=== PATIENT | male | born 1985 | race Caucasian/White ===

== ENCOUNTER 2019-11-26 14:22 | Outpatient (CLI) | payer OTHER, SELFPAY ==
[2019-11-26 14:39] LABS: Hematocrit 44.1 % (40.0-54.0); Hemoglobin 15.5 g/dL (14.0-18.0); Mean Corpuscular HGB Conc 35.1 g/dL (32.0-36.0); Mean Corpuscular Hemoglobin 33.5 pg (27.0-31.0); Mean Corpuscular Volume 95.5 fL (78.0-102.0); Mean Platelet Volume 8.7 fl (8.7-11.0); Platelet Count Result 261 K/mm3 (150-420); Red Blood Count 4.62 M/mm3 (4.70-6.10); Red Cell Distribution Width 13.6 % (11.6-14.4)
[2019-11-26 15:19] LABS: Alanine Aminotransferase 26 U/L (16-63); Albumin Level 3.5 g/dL (3.4-5.0); Alkaline Phosphatase 111 U/L (46-116); Anion Gap 10.2 mmol/L (7-16); Bilirubin,Total 0.6 mg/dL (0.00-1.00); Blood Urea Nitrogen 17 mg/dL (7-18); Calcium 8.1 mg/dL (8.5-10.1); Carbon Dioxide 29 mmol/L (21-32); Chloride 104 mmol/L (98-108); Estimated Glomerular Filt Rate > 60; Glucose 95 mg/dL (70-99); Osmolality Calculated 289 mOsm/kg (285-295); Potassium 4.2 mmol/L (3.5-5.1); Sodium 139 mmol/L (136-145); Thyroid Stimulating Hormone 2.79 uIU/mL (0.36-3.74); Total Protein 7.1 g/dL (6.4-8.2)
[2019-11-26 15:41] LABS: Aspartate Amino Transferase 22 U/L (15-37)
== END 2019-11-26 14:23 | disposition home or self-care (01) ==
PROVIDERS: PCP Family Medicine
DX: E05.90 Thyrotoxicosis, unspecified without thyrotoxic crisis or storm (principal)
CPT/HCPCS: 36415; 80053; 84436; 84439; 84443; 85027

== ENCOUNTER 2023-08-08 10:07 | Outpatient (CLI) | payer MEDICARE, MEDICAID, SELFPAY ==
--- NOTE | 2023-08-10 13:06 | WPDSLEEPSTUD ---
Sleep Study Date of Study: 08/08/23 Ordering Provider: SHERRY Soto Interpreting Physician: Nahed Degroot MD Sleep Study Type: Split Polysomnogram Height: 1.5 m Weight: 57.153 kg Body Mass Index: 25.4 Neck Circumference (inches): 15 [place]: 7 Reason for Sleep Study History of sleep apnea, on CPAP and oxygen 10 years ago * split night study 12/31/2012- AHI 63, lowest saturation 66%, optimal pressure CPAP 14 cm; BMI was 35 Sleep History Des Ngo is a 38-year-old man with history of sleep apnea diagnosed about 10 years ago, treated with CPAP and oxygen 2 liters/minute. He rarely awakens from sleep feeling short of breath. He rarely wakes at night with heartburn, belching or coughing.??He frequently snores, however never snores loudly enough that others complain. He rarely has trouble sleeping when he has a cold. He rarely wakes up gasping for breath during the night. He occasionally has breathing problems at night. He never sweats excessively at night. He does not notice his heart pounding or beating irregularly at night. He frequently falls asleep during the day. He rarely falls asleep involuntarily, does not fall asleep while driving. He never experiences loss of muscle tone with strong emotion. He never has daytime difficulty at work due to excessive sleepiness. He never feels paralyzed on waking or falling asleep. He never experiences vivid dreams upon waking or falling asleep. He never feels afraid of going to sleep. He never has nightmares. He does not recall his dreams, does not have racing thoughts, never feels sad or depressed. He frequently feels anxiety. He never notices parts of his body jerk. He never kicks during the night. He never feels crawling or aching feelings in his legs. He never feels leg pain at night. He never has morning jaw pain or grinds his teeth at night. He never feels bothered by pain during the day, is never awakened by pain during the night. [place] wakes up feeling stiff in the morning, and he rarely wakes feeling sore or achy. He never awakens with pain in his neck, spine, or joints. Normal bedtime is 7:00 a.m., and sometimes falls asleep more quickly than at other times. His normal wake time is between 4:00 pm and 5:00 p.m. In general, he does not wake up after falling asleep. If he does awaken during sleep, he may play video games or listen to music. He stays up all night and sleeps during the day. He keeps the same schedule on weekends. He estimates getting 8 hours of sleep normally, and he takes naps in the afternoon or evening. A short nap lasting 10 to 15 minutes may be refreshing. He feels better in the evening compared to other times of day. Habits:??Tobacco: Never smoker Caffeine: 2 sodas per day Alcohol: None Recreational substances: none PMFSH Past Medical History Medical History (Updated 08/10/23 @ 20:13 by Nahed Degroot MD) Allergies Asthma Down syndrome GERD (gastroesophageal reflux disease) Gout Hyperlipidemia Obstructive sleep apnea Surgical History Surgical History Hx of ventricular septal defect repair S/P tonsillectomy and adenoidectomy Social History Social History Smoking status: Never smoker Additional living arrangements comments: Lives at home with parents Medications Home Medications Medication Instructions Recorded Confirmed Type montelukast 10 mg tablet 10 mg PO DAILY 05/19/19 06/12/23 History (Singulair) omeprazole 20 mg capsule,delayed 20 mg PO DAILY 05/19/19 06/12/23 History release lidocaine HCl 2 % mucosal solution 1 applic mucous membrane TID PRN 06/09/19 06/12/23 Rx (Lidocaine Viscous) mouth pain #15 mL albuterol sulfate 90 mcg/actuation See Rx Instructions .Route 07/24/19 06/12/23 Rx aerosol inhaler (ProAir HFA) .COMPLEX ##8.5 zafirlukast 20 mg tablet See Rx Instr
[2023-08-10 20:14] VITALS: BMI 25.4
== END 2023-08-08 17:15 | disposition home or self-care (01) ==
LOC: ANHCSM 10:15
PROVIDERS: PCP Family Medicine; Visit Provider Physician Assistant
DX: G47.33 Obstructive sleep apnea (adult) (pediatric) (principal); G31.84 Mild cognitive impairment of uncertain or unknown etiology; Z99.89 Dependence on other enabling machines and devices; Z99.81 Dependence on supplemental oxygen
CPT/HCPCS: 95811